=== PATIENT | female | born 1940 | race Caucasian/White ===

== ENCOUNTER 2018-04-22 11:05 | Outpatient (CLI) | payer MEDICARE ==
--- NOTE | 2018-04-22 15:07 | MRI ---
LUMBAR SPINE MRI WITHOUT CONTRAST: Date: 04/22/18 COMPARISON: None. HISTORY: Back pain extending down the right leg for a year, lumbar radiculopathy. TECHNIQUE: Multiplanar, multisequence MR imaging of the lumbar spine obtained without contrast. FINDINGS: Sagittal STIR imaging demonstrates edematous degenerative end plate change at L3-4 on the right and a t L1-2 on the left. On the basis of congenitally short pedicles, there is diffuse central canal stenosis throughout the l umbar spine. On the basis of five lumbar-type vertebral bodies, the conus medullaris terminates at L1. T12-L1: Disc desiccation, disc space narrowing, and mild disc osteophyte complex. Bilateral facet hy pertrophy, left greater than right. No significant central canal or neural foraminal stenosis. L1-2: Disc space narrowing and disc desiccation noted. Anterior and posterior osteophyte formation n oted with a small disc osteophyte complex. Mild left lateral recess stenosis/left neural foraminal st enosis. There is a small, superimposed central disc protrusion with mild central canal stenosis. L2-3: Moderate bilateral facet hypertrophy. Disc space narrowing and disc desiccation is noted. Ther e is a disc herniation in the left paracentral region. There is moderate left lateral recess stenosis and moderate/severe central canal stenosis. Mild bilateral neural foraminal stenosis, left greater t anderson right. L3-4: There is disc space narrowing, disc desiccation, disc bulge, and a superimposed central disc h erniation with severe central canal stenosis and mass effect on the nerve roots of the cauda equina. There is prominent bilateral facet hypertrophy and hypertrophy of the ligamentum flavum. There is mil d neural foraminal stenosis on the right. L4-5: Moderate bilateral facet hypertrophy and hypertrophy of the ligamentum flavum. There is disc d esiccation. There is mild central canal stenosis. No significant neural foraminal stenosis. L5-S1: There is disc space narrowing and disc desiccation. There is mild posterior osteophyte format ion extending into the region of the right neural foramen. Mild right neural foraminal stenosis. No s ignificant central canal or left neural foraminal stenosis. There are small bilateral renal cysts noted. Retroperitoneal structures demonstrate No acute findings . IMPRESSION: Prominent multilevel degenerative change within the lumbar spine as detailed above, most significant at L2-3 and L3-4 as detailed above. POS: DANELLE
== END 2018-04-22 11:06 | disposition home or self-care (01) ==
LOC: TBSIIMAG 11:05
PROVIDERS: ATTEND Neurological Surgery
DX: M47.26 Other spondylosis with radiculopathy, lumbar region (principal)
CPT/HCPCS: 72148

== ENCOUNTER 2018-07-14 16:01 | Outpatient (CLI) | payer MEDICARE ==
--- NOTE | 2018-07-14 16:20 | RAD ---
CERVICAL SPINE AP, LATERAL, STANDARD 07/14/18 HISTORY: M47.12 - cervical myelopathy. COMPARISON: None. FINDINGS: There are surgical clips posteriorly. Recent ACDF at C4-C5 discectomy changes as well as posterior sp inal fusion unilaterally on the right. Lung apices are clear. Open mouth odontoid view is normal. IMPRESSION: Satisfactory postoperative appearance. POS: CET
== END 2018-07-14 16:02 | disposition home or self-care (01) ==
LOC: TBSIIMAG 16:01
PROVIDERS: ATTEND Neurological Surgery
DX: M47.12 Other spondylosis with myelopathy, cervical region (principal); Z98.890 Other specified postprocedural states
CPT/HCPCS: 72040

== ENCOUNTER 2018-08-26 13:40 | Outpatient (CLI) | payer MEDICARE ==
--- NOTE | 2018-08-26 13:54 | RAD ---
XR Cerv Sp Ap Lat STANDARD HISTORY: Follow-up surgery COMPARISON: 07/14/2018 study FINDINGS: Anterior plate and screws have been placed at C4-5. Marked disc narrowing at C5-6 and C6-7. Right unilateral facet screws also seen at C4-5. IMPRESSION: Stable postop change.
== END 2018-08-26 13:41 | disposition home or self-care (01) ==
LOC: TBSIIMAG 13:40
PROVIDERS: ATTEND Neurological Surgery
DX: M54.2 Cervicalgia (principal); Z98.890 Other specified postprocedural states
CPT/HCPCS: 72040

== ENCOUNTER 2018-12-16 13:59 | Outpatient (CLI) | payer MEDICARE ==
--- NOTE | 2018-12-16 15:51 | MRI ---
MRI LUMBAR SPINE NONCONTRAST: DATE: 12/16/2018 HISTORY: 78-year-old female with lumbar spondylosis and neurogenic claudication. COMPARISON: 04/22/2018 FINDINGS: For the purposes of this report, it will be assumed that there are 5 lumbar-type vertebrae. Vertebral body heights are maintained. No major spondylolisthesis. Lateral curvature convex to the right at upper L-spine and convex to left at mid-lower lumbar spine. Conus medullaris terminates slightly superior to L1-2 level. T12-L1:Disc bulge indents the ventral aspect of thecal sac. Mild central stenosis. Mild bilateral fac et DJD. No high-grade neural foraminal stenosis. Disc space maintained. L1-2:Severe left-sided disc space narrowing and prominent left Modic type I endplate marrow edema, al salvador the concavity of the lateral curvature. Diffuse irregular disc bulge. Superimposed small to moderate-sized central disc herniation with inferior migration of extruded disc material to the pedic le level of L2. Moderate central spinal canal stenosis. Mild right neural foraminal stenosis. Moderate to severe left neural foraminal stenosis. Left lateral recess stenosis. No significant inter kim change. L2-3:Broad-based moderate sized asymmetric central and bilateral paracentral disc herniation versus a symmetrical disc bulge. At the left paracentral aspect of the spinal canal, this becomes a focal disc extrusion with superior migration of extruded disc material a short distance, extending into the left lateral recess. Moderate bilateral facet DJD. Mild disc space narrowing. Moderate to severe right neural foraminal stenosis. Moderate left neural foraminal stenosis. Severe central spinal canal stenosis. Posterior epidural fat pad. Very severe thecal sac stenosis with obliteration of CSF signal. Severe lateral recess stenosis bilaterally. No significant interval change. L3-4:Severe right lateral disc space narrowing and prominent Modic type I right-sided endplate marrow edema due to concavity of the curvature at this level. Moderate to severe right neural foraminal stenosis. Prominent diffuse disc bulge. Superimposed left paracentral-lateral disc extrusion with sup erior migration of extruded disc material not quite reaching the L3 pedicle level. Possibility of sequestered disc fragment. This encroaches upon the left lateral recess and abuts the exiting left L3 nerve root. The left neural foramen has mild stenosis. Ligamentum flavum thickening and moderate bilateral facet DJD. Severe central spinal canal stenosis. Extremely severe thecal sac stenosis and s evere lateral recess stenosis bilaterally, right greater than left. Previously, central and bilateral paracentral disc herniation best extrusion was larger than today. L4-5:Moderate to severe ligamentum flavum thickening. High-grade bilateral facet DJD. Mild grade 1 an terolisthesis of L4 on L5. Mild disc space narrowing. Lateral recess stenosis bilaterally. Trefoil configuration of thecal sac, especially on right side due to focal right facet osteophyte. Moderate t o severe central spinal canal stenosis. Mild to moderate bilateral neural foraminal stenosis. No interval change. L5-S1:Diffuse severe disc space narrowing. Modic type II endplate marrow changes. Slight degenerative retrolisthesis of L5 on S1. Lateral recess stenosis bilaterally. Mild central spinal canal stenosis. Mild to moderate right neural foraminal stenosis. Mild left neural foraminal stenosis. No s ignificant interval change. IMPRESSION: 1) lumbar spondylosis with multilevel degenerative disc disease, including high-grade, and multilevel facet osteoarthrosis. 2) high-grade central spinal canal stenosis and thecal sac stenosis (including severe) at multiple le vels, especially at L2-3 and L3-4. 3) multilevel disc herniations including extrusions in addition to disc bulges. 4) the moderately large central and bilateral paracentral disc herniation-extrusion at L3-[address] previously has somewhat decreased in size.
== END 2018-12-16 14:00 | disposition home or self-care (01) ==
LOC: TBSIIMAG 13:59
PROVIDERS: ATTEND Neurological Surgery
DX: M48.062 Spinal stenosis, lumbar region with neurogenic claudication (principal); M51.26 Other intervertebral disc displacement, lumbar region; M51.86 Other intervertebral disc disorders, lumbar region; M47.816 Spondylosis without myelopathy or radiculopathy, lumbar region
CPT/HCPCS: 72148

== ENCOUNTER 2020-08-25 11:15 | Outpatient (CLI) | payer MEDICARE ==
[~2020-08-25 11:15] MED LIST: Iopamidol 370 76% 100 ML VIAL ONE
== END 2020-08-25 11:16 | disposition home or self-care (01) ==
LOC: CT 11:15
PROVIDERS: ATTEND Internal Medicine Cardiovascular Disease
DX: I65.23 Occlusion and stenosis of bilateral carotid arteries (principal)
CPT/HCPCS: 70498; 82565; Q9967

== ENCOUNTER 2022-02-27 12:59 | Outpatient (CLI) | payer MEDICARE | END 2022-02-27 13:00 | disposition home or self-care (01) | LOC: TBSIIMAG 12:59 | PROVIDERS: ATTEND Neurological Surgery | DX: M47.12 Other spondylosis with myelopathy, cervical region (principal); Z98.890 Other specified postprocedural states; M47.22 Other spondylosis with radiculopathy, cervical region; M50.01 Cervical disc disorder with myelopathy, high cervical region; M50.11 Cervical disc disorder with radiculopathy, high cervical region; M50.021 Cervical disc disorder at C4-C5 level with myelopathy; M50.121 Cervical disc disorder at C4-C5 level with radiculopathy; M50.022 Cervical disc disorder at C5-C6 level with myelopathy; M50.122 Cervical disc disorder at C5-C6 level with radiculopathy; M50.023 Cervical disc disorder at C6-C7 level with myelopathy; M50.123 Cervical disc disorder at C6-C7 level with radiculopathy | CPT/HCPCS: 72040; 72141 ==